=== PATIENT | female | born 1970 | race Asian ===

== ENCOUNTER 2017-11-04 15:20 | Inpatient (IN) | payer BC, OTHER ==
[~2017-11-04] VITALS: Ht 152.4 cm; Wt 60.8 kg
[~2017-11-04 15:20] MED LIST: CEFAZOLIN 1 GM IVPB PREMIX 50 ML IV ONE; DEXAMETHASONE SOD PHOSPHATE 4 MG/ML VIAL IVP ONE; GLYCOPYRROLATE 0.2 MG/ML VIAL IJ ONE; KETOROLAC TROMETHAMINE 30 MG VIAL IVP ONE; LR 1,000 ML IV.SOLN IV ONE; MIDAZOLAM HCL 5 MG/5 ML VIAL IVP ONE; MIVACURIUM CHLORIDE 20 MG/10 ML VIAL (MIVACRON) INJ ONE; NS IRRIG SOLN 1000 ML IR ONE; PIPERACILLIN/TAZOBACTAM 3.375 GM/VIAL (ZOSYN) IV ONE; PROPOFOL 200MG/ 20ML VIAL (DIPRIVAN) IV ONE; SEVOFLURANE 15 MIN GAS INH ONE; fentaNYL CITRATE/PF 100 MCG/2 ML AMP IVP ONE
[2017-11-04 15:47] VITALS: BP_SYST 134
[2017-11-04 16:22] LABS: BASOPHILS % (AUTO) 0.4 % (0.0-2.0); EOSINOPHILS # (AUTO) 0.1 K/uL (0.0-0.4); EOSINOPHILS % (AUTO) 1.5 % (0.0-4.0); HEMATOCRIT 37.2 % (36-48); HEMOGLOBIN 12.4 g/dL (12.0-16.0); LYMPHOCYTES # (AUTO) 2.3 K/uL (1.0-5.5); LYMPHOCYTES % (AUTO) 31.2 % (20.5-51.5); MEAN CORPUSCULAR HEMOGLOBIN 28 pg (27-31); MEAN CORPUSCULAR HGB CONC 33 % (32-36); MEAN CORPUSCULAR VOLUME 83 fL (79.0-98.0); MONOCYTES # (AUTO) 0.6 K/uL (0.0-1.0); MONOCYTES % (AUTO) 7.8 % (1.7-9.3); NEUTROPHILS # (AUTO) 4.2 K/uL (1.8-7.7); NEUTROPHILS % (AUTO) 59.1 % (40.0-70.0); PLATELET COUNT (AUTO) 273 K/uL (130-430); RED BLOOD CELL COUNT(AUTO) 4.51 MIL/uL (4.2-6.2); RED CELL DISTRIBUTION WIDTH 13.3 % (9.0-15.0); WHITE BLOOD COUNT (AUTO) 7.2 K/uL (4.8-10.8)
[2017-11-04 16:33] LABS: BILIRUBIN,URINE NEGATIVE (NEGATIVE); BLOOD, URINE 1+ (NEGATIVE); CLARITY/URINE CLEAR (CLEAR); COLOR,URINE YELLOW (YELLOW); GLUCOSE,URINE NEGATIVE (NEGATIVE); KETONES,URINE NEGATIVE (NEGATIVE); LEUKOCYTE ESTERASE ,URINE NEGATIVE (NEGATIVE); NITRITE, URINE NEGATIVE (NEGATIVE); PH,URINE 6.5 (5.0-8.0); PROTEIN URINE NEGATIVE (NEGATIVE); UROBILINOGEN,URINE 0.2 (0.2-1.0)
[2017-11-04 16:34] LABS: CALCIUM 9.3 mg/dL (8.4-11.0); CREATININE 0.83 mg/dL (0.55-1.30); POTASSIUM 3.8 mmol/L (3.5-5.1)
[2017-11-04 16:35] LABS: PROTHROMBIN TIME 9.7 SECS (9.5-12.5)
[2017-11-04 16:38] LABS: ALBUMIN 3.7 g/dL (3.4-4.8); TOTAL BILIRUBIN 0.3 mg/dL (0.0-1.0)
[2017-11-04 16:51] LABS: BACTERIA,URINE FEW /HPF (None Seen); WBC,URINE 0-3 /HPF (0-3)
[2017-11-04] MEDS: NACL 0.9% 1,000 ML IV SCH ×2 (19:08→21:48)
[2017-11-04 19:15] VITALS: BP_SYST 100
[2017-11-04] MEDS ORDERED: ONDANSETRON HCL 4 MG/2 ML VIAL IVP ONE (19:15)
[2017-11-04] MEDS ORDERED: HYDROmorphone 1 MG INJ. 1 MG/ML AMPUL IVP ONE (19:15)
[2017-11-04 20:00] VITALS: BP_SYST 100
[2017-11-05 00:10] VITALS: BP_SYST 95
[2017-11-05] MEDS ORDERED: IBUPROFEN 800 MG TABLET PO PRN (08:00)
[2017-11-05] MEDS ORDERED: ACETAMINOPHEN/CODEINE 300 MG-30 MG TABLET PO PRN (08:00)
[2017-11-05 08:15] VITALS: BP_SYST 124
[2017-11-05] MEDS ORDERED: LR 1,000 ML IV SCH (09:04)
[2017-11-05] MEDS ORDERED: MEPERIDINE HCL/PF 25 MG/ML DISP.SYRIN IVP PRN (09:15)
[2017-11-05] MEDS ORDERED: HYDROmorphone 2 MG/ML VIAL IVP PRN ×2 (09:15)
[2017-11-05] MEDS ORDERED: HYDROmorphone 1 MG INJ. 1 MG/ML AMPUL IVP PRN (09:15)
[2017-11-05 09:51] VITALS: BP_SYST 95
[2017-11-05] MEDS ORDERED: HYDROmorphone 2 MG/ML VIAL ONE (10:18)
[2017-11-05 12:24] VITALS: BP_SYST 106
[2017-11-05] MEDS: MORPHINE 4 MG/ML INJ. SYRINGE IVP PRN ×2 (14:40→22:08)
[2017-11-05] MEDS: NACL 0.9% 1,000 ML IV SCH (14:45)
[2017-11-05 16:07] VITALS: BP_SYST 102
[2017-11-05] MEDS: ONDANSETRON HCL 4 MG/2 ML VIAL IVP PRN (17:52)
[2017-11-05 20:00] VITALS: BP_SYST 118
[2017-11-06 00:31] VITALS: BP_SYST 106
[2017-11-06] MEDS: NACL 0.9% 1,000 ML IV SCH (01:34)
[2017-11-06] MEDS: MORPHINE 4 MG/ML INJ. SYRINGE IVP PRN (04:29)
[2017-11-06 08:18] VITALS: BP_SYST 97
[2017-11-06] MEDS: ONDANSETRON HCL 4 MG/2 ML VIAL IVP PRN (09:08)
[2017-11-06 10:58] VITALS: BP_SYST 111
== END 2017-11-06 12:02 | disposition home or self-care (01) | DRG 743 ==
LOC: SED 15:20 → SMU 18:34
PROVIDERS: ADMIT Obstetrics & Gynecology; ATTEND Obstetrics & Gynecology
PROC: 3E0T3BZ Introduction of Anesthetic Agent into Peripheral Nerves and Plexi, Percutaneous Approach (ICD-10-PCS; 2017-11-05)
PROC: 0UB00ZZ Excision of Right Ovary, Open Approach (ICD-10-PCS; principal; 2017-11-05 07:30)
DX: N83.209 Unspecified ovarian cyst, unspecified side (principal); R19.00 Intra-abdominal and pelvic swelling, mass and lump, unspecified site
CPT/HCPCS: 36415; 71010; 80053; 81000-TC; 83605; 83690-TC; 84703; 85025; 85610-TC; 87040-TC; 87081; 88305; 88307; 93005; 94760; 99285; J0690; J1100; J1170; J1885; J2250; J2270; J2405; J2543; J2704; J3010; J3490; J7030; J7120

== ENCOUNTER 2017-12-09 15:43 | Emergency (ER) | payer BC, OTHER ==
[~2017-12-09] VITALS: Ht 154.9 cm; Wt 61.2 kg
[2017-12-09 15:55] VITALS: BP_SYST 116
[2017-12-09 16:16] LABS: BASOPHILS % (AUTO) 0.5 % (0.0-2.0); EOSINOPHILS # (AUTO) 0.1 K/uL (0.0-0.4); HEMOGLOBIN 11.9 g/dL (12.0-16.0); LYMPHOCYTES % (AUTO) 24.7 % (20.5-51.5); MEAN CORPUSCULAR HEMOGLOBIN 28 pg (27-31); MEAN CORPUSCULAR HGB CONC 34 % (32-36); MEAN CORPUSCULAR VOLUME 83 fL (79.0-98.0); MONOCYTES # (AUTO) 0.6 K/uL (0.0-1.0); MONOCYTES % (AUTO) 7.7 % (1.7-9.3); NEUTROPHILS # (AUTO) 5.4 K/uL (1.8-7.7); NEUTROPHILS % (AUTO) 66.1 % (40.0-70.0); PLATELET COUNT (AUTO) 259 K/uL (130-430); RED BLOOD CELL COUNT(AUTO) 4.23 MIL/uL (4.2-6.2); WHITE BLOOD COUNT (AUTO) 8.1 K/uL (4.8-10.8)
[2017-12-09 16:30] LABS: CALCIUM 10.1 mg/dL (8.4-11.0); CREATININE 0.67 mg/dL (0.55-1.30); POTASSIUM 3.5 mmol/L (3.5-5.1)
[2017-12-09 16:35] LABS: ALBUMIN 3.9 g/dL (3.4-4.8); PROTHROMBIN TIME 9.8 SECS (9.5-12.5); TOTAL BILIRUBIN 0.3 mg/dL (0.0-1.0)
--- NOTE | 2017-12-09 16:37 | NUR ---
Pt ambulated to bed 7
--- NOTE | 2017-12-09 16:42 | NUR ---
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 Pt denies n/v or diarrhea but states had a slight fever 3 days ago. Pt is ambulatory with no noted difficulty. No other injuries/complaints per pt or noted.
--- NOTE | 2017-12-09 16:44 | NUR ---
ER at bedside examining patient.
[2017-12-09 16:51] LABS: BILIRUBIN,URINE NEGATIVE (NEGATIVE); BLOOD, URINE 1+ (NEGATIVE); CLARITY/URINE CLEAR (CLEAR); COLOR,URINE YELLOW (YELLOW); GLUCOSE,URINE NEGATIVE (NEGATIVE); KETONES,URINE NEGATIVE (NEGATIVE); LEUKOCYTE ESTERASE ,URINE NEGATIVE (NEGATIVE); NITRITE, URINE NEGATIVE (NEGATIVE); PROTEIN URINE NEGATIVE (NEGATIVE); UROBILINOGEN,URINE 0.2 (0.2-1.0)
--- NOTE | 2017-12-09 16:57 | NUR ---
Pt refused pain medication and zofran at this time, Dr Guevara is aware
[2017-12-09] MEDS ORDERED: MORPHINE SULFATE 10 MG/ML VIAL IVP ONE (17:00)
[2017-12-09] MEDS ORDERED: NACL 0.9% 1,000 ML IV ONE (17:00)
[2017-12-09] MEDS ORDERED: KETOROLAC TROMETHAMINE 30 MG VIAL IVP ONE (17:00)
[2017-12-09] MEDS ORDERED: ONDANSETRON HCL 4 MG/2 ML VIAL IVP ONE (17:00)
[2017-12-09 17:06] LABS: BACTERIA,URINE FEW /HPF (None Seen); MUCUS,URINE None Seen /LPF (None Seen); RBC,URINE 0-3 /HPF (0-3); WBC,URINE NONE SEEN /HPF (0-3)
--- NOTE | 2017-12-09 17:30 | NUR ---
Pt went to radiology in stable condition
--- NOTE | 2017-12-09 18:00 | NUR ---
Pt returned from radiology in stable condition
--- NOTE | 2017-12-09 18:00 | NUR ---
Medication was given, pt tolerated well. No noted adverse reaction, will continue to monitor.
[2017-12-09] MEDS ORDERED: cefTRIAXone 2 GM VIAL ONE (18:09)
[2017-12-09 19:17] VITALS: BP_SYST 120
--- NOTE | 2017-12-09 19:17 | NUR ---
Patient given written and verbal discharge instructions and verbalizes understanding. ER MD discussed with patient the results and treatment provided. Patient in stable condition. ID arm band removed. IV catheter removed intact and dressing applied, no active bleeding. Rx of motrin, keflex and bactrim given. Patient educated on pain management and to follow up with PMD. Pain Scale 0. Opportunity for questions provided and answered.
== END 2017-12-09 19:17 | disposition home or self-care (01) ==
LOC: SED 15:43
DX: T81.4XXA Infection following a procedure, initial encounter (principal); Z85.43 Personal history of malignant neoplasm of ovary; Z90.721 Acquired absence of ovaries, unilateral
CPT/HCPCS: 36415; 74176; 80053; 81000; 81025; 83605; 83690; 84703; 85025; 85610; 85730; 87040; 87086; 96361; 96365; 99285; J0696; J7030; J7060

== ENCOUNTER 2017-12-10 20:41 | Emergency (ER) | payer BC, OTHER ==
[~2017-12-10] VITALS: Ht 154.9 cm; Wt 61.2 kg
[2017-12-10 20:41] VITALS: BP_SYST 105
--- NOTE | 2017-12-10 21:00 | NUR ---
Patient to ER bed 07 to gown for evaluation. Side rails up.
--- NOTE | 2017-12-10 21:48 | NUR ---
Pt brought by family member, A&Ox4, pt presents to ER with N/V/D after taking antibiotics Keflex and Bactrim, pt states she was at ER yesterday and was treated for post ovarian surgery wound infection,surgery was done one month ago, abdominal pain imrpving from 10 to 4/10, afebrile, skin pink and warm, cap refill <3.
--- NOTE | 2017-12-10 21:48 | NUR ---
Dr Lutz at bedside examining patient
[2017-12-10] MEDS ORDERED: ONDANSETRON 4 MG ODT TAB PO ONE (22:00)
--- NOTE | 2017-12-10 22:15 | NUR ---
Pt resting at this time on stable condition.
[2017-12-10 22:23] LABS: HEMATOCRIT 41.6 % (36-48); HEMOGLOBIN 13.6 g/dL (12.0-16.0); MEAN CORPUSCULAR HEMOGLOBIN 27 pg (27-31); MEAN CORPUSCULAR HGB CONC 33 % (32-36); MEAN CORPUSCULAR VOLUME 83 fL (79.0-98.0); PLATELET COUNT (AUTO) 286 K/uL (130-430); RED BLOOD CELL COUNT(AUTO) 4.99 MIL/uL (4.2-6.2); RED CELL DISTRIBUTION WIDTH 13.1 % (9.0-15.0)
[2017-12-10 22:35] LABS: ALBUMIN 3.3 g/dL (3.4-4.8); CALCIUM 9.9 mg/dL (8.4-11.0); CREATININE 0.89 mg/dL (0.55-1.30); POTASSIUM 4.3 mmol/L (3.5-5.1); TOTAL BILIRUBIN 0.4 mg/dL (0.0-1.0)
[2017-12-10 22:46] LABS: BAND % (MANUAL) 32 % (0-6); BASOPHILS % (MANUAL) 0 % (0-2); EOSINOPHILS % (MANUAL) 0 % (0-7); LYMPHOCYTES % (MANUAL) 2 % (20-46); MONOCYTES % (MANUAL) 3 % (0-11)
--- NOTE | 2017-12-10 22:55 | NUR ---
Pt states feeling better, denies nausea at this time.
--- NOTE | 2017-12-10 22:58 | NUR ---
Pt temp 100.6 at this time, Dr Lutz aware, Tylenol order received.
--- NOTE | 2017-12-10 22:59 | NUR ---
Report given to Zayra STEVEN
[2017-12-10 23:19] VITALS: BP_SYST 110
--- NOTE | 2017-12-10 23:19 | NUR ---
Patient given written and verbal discharge instructions and verbalizes understanding. ER MD discussed with patient the results and treatment provided. Patient in stable condition. ID arm band removed. Rx of clindamycin and zofran given. Patient educated on pain management and to follow up with PMD. Pain Scale 0/10. Opportunity for questions provided and answered.
[2017-12-10 23:22] LABS: BILIRUBIN,URINE 1+ (NEGATIVE); BLOOD, URINE 2+ (NEGATIVE); CLARITY/URINE SL CLOUDY (CLEAR); COLOR,URINE YELLOW (YELLOW); GLUCOSE,URINE NEGATIVE (NEGATIVE); KETONES,URINE NEGATIVE (NEGATIVE); LEUKOCYTE ESTERASE ,URINE NEGATIVE (NEGATIVE); NITRITE, URINE NEGATIVE (NEGATIVE); PH,URINE 5.5 (5.0-8.0); PROTEIN URINE TRACE (NEGATIVE); UROBILINOGEN,URINE 0.2 (0.2-1.0)
[2017-12-10 23:30] LABS: BACTERIA,URINE FEW /HPF (None Seen); MUCUS,URINE 3+ /LPF (None Seen)
== END 2017-12-10 21:00 | disposition home or self-care (01) ==
LOC: SED 20:41
DX: K52.1 Toxic gastroenteritis and colitis (principal); R11.10 Vomiting, unspecified; R10.9 Unspecified abdominal pain; T37.0X5A Adverse effect of sulfonamides, initial encounter; T36.1X5A Adverse effect of cephalosporins and other beta-lactam antibiotics, initial encounter; Z90.721 Acquired absence of ovaries, unilateral; Y92.89 Other specified places as the place of occurrence of the external cause
CPT/HCPCS: 36415; 80053; 81000; 81025; 83605; 83690; 85007; 85027; 87040; 87086; 99284; Q0162